=== PATIENT | female | born 1980 | race Caucasian/White ===

== ENCOUNTER → 2018-03-05 | Outpatient (CLI) | payer OTHER | END | disposition home or self-care (01) | LOC: RESCLI 14:30 | DX: J40 Bronchitis, not specified as acute or chronic (principal); F43.10 Post-traumatic stress disorder, unspecified; F31.70 Bipolar disorder, currently in remission, most recent episode unspecified; F17.210 Nicotine dependence, cigarettes, uncomplicated; Z79.899 Other long term (current) drug therapy; Z88.8 Allergy status to other drugs, medicaments and biological substances ==

== ENCOUNTER 2018-03-21 09:59 | Emergency (ER) | payer OTHER ==
[2018-03-22 16:06] LABS: HEPATITIS B SURFACE AB 006395 Reactive (.); HEPATITIS C AB <0.1 (0.0-0.9)
== END 2018-03-21 11:20 | disposition home or self-care (01) ==
LOC: ED 09:59
PROVIDERS: Emergency Medicine
DX: S61.032A Puncture wound without foreign body of left thumb without damage to nail, initial encounter (principal); W27.3XXA Contact with needle (sewing), initial encounter; Y93.89 Activity, other specified; Y92.89 Other specified places as the place of occurrence of the external cause; Y99.8 Other external cause status

== ENCOUNTER 2018-10-28 19:30 | Emergency (ER) | payer OTHER ==
[~2018-10-28] VITALS: Ht 170.1 cm; Wt 86.2 kg
== END 2018-10-28 21:06 | disposition home or self-care (01) ==
LOC: ED 19:30
DX: S63.592A Other specified sprain of left wrist, initial encounter (principal); X50.1XXA Overexertion from prolonged static or awkward postures, initial encounter; Y93.89 Activity, other specified; Y92.238 Other place in hospital as the place of occurrence of the external cause; Y99.9 Unspecified external cause status

== ENCOUNTER → 2019-06-07 | Outpatient (CLI) | payer OTHER | END | disposition home or self-care (01) | LOC: COVID19 11:00 | DX: Z11.59 Encounter for screening for other viral diseases (principal); R50.81 Fever presenting with conditions classified elsewhere ==